=== PATIENT | female | born 1995 | race Caucasian/White ===

== ENCOUNTER 2020-01-30 00:29 | Emergency (ER) | payer MEDICAID, SELFPAY ==
[~2020-01-30] VITALS: Ht 152.4 cm; Wt 54.4 kg
[2020-01-30 00:35] VITALS: BP_SYST 124
[2020-01-30 01:25] VITALS: BP_SYST 124
== END 2020-01-30 01:25 | disposition home or self-care (01) ==
LOC: SED 00:29
DX: Z03.818 Encounter for observation for suspected exposure to other biological agents ruled out (principal)
CPT/HCPCS: 99283; C9803; U0003